=== PATIENT | female | born 1990 | race African-American/Black ===

== ENCOUNTER 2018-02-24 13:30 | Emergency (ER) | payer MEDICARE, MEDICAID ==
[~2018-02-24] VITALS: Ht 162.6 cm; Wt 64.0 kg
[2018-02-24] MEDS ORDERED: ALBUTEROL (0.083%) 2.5MG/3ML NEB HHN STA (13:58)
[2018-02-24 14:40] LABS: HEMATOCRIT. 28.4 % (36.0-48.0); HEMOGLOBIN. 9.4 g/dL (12.0-16.0); MEAN CORPUSCULAR HEMOGLOBIN 29.6 pg (28.0-32.0); MEAN CORPUSCULAR VOLUME 89.5 fL (81.0-99.0); MEAN PLATELET VOLUME 7.8 fl (7.4-10.4); PLATELET 177 x1000/uL (130-400); RED BLOOD CELL COUNT 3.18 mill/uL (4.2-5.4); RED CELL DISTRIBUTION WIDTH 16.3 % (11.6-14.6)
[2018-02-24 14:48] LABS: CHLORIDE 103 mEq/L (98-107)
[2018-02-24 14:53] LABS: HCG SCREEN NEGATIVE
[2018-02-24 15:24] LABS: PLATELET ESTIMATE NORMAL
[2018-02-24 16:20] VITALS: BP 169/109
== END 2018-02-24 16:30 | disposition home or self-care (01) ==
LOC: ER 14:32
DX: R06.03 Acute respiratory distress (principal); I13.2 Hypertensive heart and chronic kidney disease with heart failure and with stage 5 chronic kidney disease, or end stage renal disease; I50.9 Heart failure, unspecified; N18.6 End stage renal disease; Z99.2 Dependence on renal dialysis; J45.909 Unspecified asthma, uncomplicated
CPT/HCPCS: 36415; 71045; 80053; 84484; 84703; 85025; 99285

== ENCOUNTER 2018-03-12 15:30 | Emergency (ER) | payer OTHER, MEDICAID ==
[~2018-03-12] VITALS: Ht 162.6 cm; Wt 64.0 kg
[2018-03-12] MEDS ORDERED: IBUPROFEN 600MG TABLET PO ONE (16:45)
[2018-03-12 17:52] VITALS: BP 126/87
== END 2018-03-12 17:53 | disposition home or self-care (01) ==
LOC: ER 15:30
DX: M62.838 Other muscle spasm (principal); M25.511 Pain in right shoulder; M54.2 Cervicalgia; M25.571 Pain in right ankle and joints of right foot; J45.909 Unspecified asthma, uncomplicated; I50.9 Heart failure, unspecified; I13.0 Hypertensive heart and chronic kidney disease with heart failure and stage 1 through stage 4 chronic kidney disease, or unspecified chronic kidney disease; N18.9 Chronic kidney disease, unspecified; R56.9 Unspecified convulsions; Z99.2 Dependence on renal dialysis; Z88.8 Allergy status to other drugs, medicaments and biological substances
CPT/HCPCS: 73030; 99284